=== PATIENT | male | born 1970 | race American Indian/Alaskan Native ===

== ENCOUNTER 2016-10-17 10:40 | Emergency (ER) | payer OTHER, BC ==
[2016-10-17 11:14] VITALS: BP 159/104
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
== END 2016-10-17 12:23 | disposition home or self-care (01) ==
LOC: ED 10:40
DX: S39.012A Strain of muscle, fascia and tendon of lower back, initial encounter (principal); V89.2XXA Person injured in unspecified motor-vehicle accident, traffic, initial encounter; Y93.89 Activity, other specified; Y99.8 Other external cause status; Y92.89 Other specified places as the place of occurrence of the external cause
CPT/HCPCS: 99282